=== PATIENT | male | born 1970 | race Caucasian/White ===

== ENCOUNTER 2017-11-19 08:54 | Emergency (ER) | payer BC, OTHER ==
[~2017-11-19] VITALS: Ht 182.9 cm; Wt 106.1 kg
[2017-11-19 09:19] VITALS: BP_SYST 109; BP_SYST 110; BP_SYST 122; BP_DIAS 75; BP_DIAS 76; BP_DIAS 79
[2017-11-19] MEDS ORDERED: LACTATED RINGERS 1,000 ML IV ONE (09:22)
[2017-11-19 09:32] LABS: BASOPHILS % (AUTO) 0 % (0-10); EOSINOPHILS % (AUTO) 1 % (0-10); HEMATOCRIT 45 % (40-54); LYMPHOCYTES # (AUTO) 1.8 X 10^3 (1.0-4.0); LYMPHOCYTES % (AUTO) 40 % (12-44); MEAN CORPUSCULAR HEMOGLOBIN 33 PG (25-34); MEAN CORPUSCULAR HGB CONC 36 G/DL (32-36); MEAN CORPUSCULAR VOLUME 92 FL (80-99); MEAN PLATELET VOLUME 9.6 FL (7.4-10.4); MONOCYTES # (AUTO) 0.4 X 10^3 (0.0-1.0); MONOCYTES % (AUTO) 8 % (0-12); NEUTROPHILS # (AUTO) 2.3 X 10^3 (1.8-7.8); NEUTROPHILS % (AUTO) 51 % (42-75); PLATELET COUNT 229 10^3/uL (130-400); RED BLOOD COUNT 4.86 10^6/uL (4.35-5.85); RED CELL DISTRIBUTION WIDTH 13.2 % (10.0-14.5); WHITE BLOOD COUNT 4.4 10^3/uL (4.3-11.0)
[2017-11-19] MEDS ORDERED: SULF-222 (09:33)
[2017-11-19] MEDS ORDERED: EMTR1TAB7 (09:33)
[2017-11-19] MEDS ORDERED: TRAZ100T92 (09:33)
[2017-11-19] MEDS ORDERED: ALPR0.5T7 (09:33)
[2017-11-19] MEDS ORDERED: FINA5TAB6 (09:33)
[2017-11-19] MEDS ORDERED: DEXT20TA8 (09:33)
[2017-11-19 09:44] LABS: ALANINE AMINOTRANSFERASE 20 U/L (0-55); ALBUMIN 5.1 GM/DL (3.2-4.5); ALKALINE PHOSPHATASE 55 U/L (40-136); BILIRUBIN,TOTAL 0.9 MG/DL (0.1-1.0); BUN/CREATININE RATIO 17; CALCIUM 10.1 MG/DL (8.5-10.1); CARBON DIOXIDE 28 MMOL/L (21-32); CHLORIDE 100 MMOL/L (98-107); GFR ESTIMATED 59; GLUCOSE 97 MG/DL (70-105); POTASSIUM 3.6 MMOL/L (3.6-5.0); SODIUM 139 MMOL/L (135-145); TOTAL PROTEIN 7.5 GM/DL (6.4-8.2)
--- NOTE | 2017-11-19 10:02 | ED Syncope ---
General Chief Complaint: Dizziness/Syncope Stated Complaint: SYNCOPAL EPISODES,WEAKNESS Nursing Triage Note: pt presents to ed with complaints of syncopal episode after getting out of bed this morning. pt went to work and nurse practitioner there refered him to ED. pt denies any injury besides bilateral knee tenderness. pt denies any recent illness. pt ambulates to ED room 6 without difficulty. Source of Information: Patient Exam Limitations: No Limitations History of Present Illness Date Seen by Provider: Nov 19, 2017 Time Seen by Provider: 09:15 Initial Comments Here with report of syncopal episode this morning. States that he got up out of bed and then bent over to pet his dogs when he felt dizzy and then realized he had passed out. He was only out for a few seconds and came back to. Complains of bilateral knee pain but is walking without difficulty. He actually got ready and went to work and saw the provider at work who sent him here for further evaluation. Denies ever having anything like this before. Did have some nausea but no vomiting with the incident. Denies recent illness or other concerns. Timing/Prior Episodes: No Prior History Symptoms Prior to Episode: Lightheadedness Precipitating Factors: Other (occurred just after waking up) Loss of Consciousness: Brief (Seconds) Current Symptoms: Back to Normal; No Chest Pain, No Diaphoresis, No Headache; Injury (bilateral knees); No Lightheadedness, No Nausea, No Pale, No Weakness Allergies and Home Medications Allergies Coded Allergies: Penicillins (Verified Allergy, Unknown, 11/19/17) Patient Home Medication List Home Medication List Reviewed: Yes Constitutional: see HPI; No chills, No fever EENTM: no symptoms reported Respiratory: no symptoms reported Cardiovascular: see HPI; No chest pain; syncope Gastrointestinal: see HPI Musculoskeletal: see HPI, joint pain; No joint swelling Skin: no symptoms reported All Other Systems Reviewed Negative Unless Noted: Yes Past Tkmzctg-Xxttiu-Rleoun Hx Patient Social History Alcohol Use: Occasionally Uses Recreational Drug Use: No Smoking Status: Never a Smoker Recent Foreign Travel: No Contact w/Someone Who Travel: No Recent Infectious Disease Expo: No Recent Hopitalizations: No Physical Abuse: No Sexual Abuse: No Mistreated: No Fear: No Seasonal Allergies Seasonal Allergies: No Past Medical History Surgeries: Yes Gallbladder, Tonsillectomy Respiratory: Yes Sleep Apnea Cardiac: Yes Hypertension Neurological: No Genitourinary: No Gastrointestinal: No Musculoskeletal: No Endocrine: Yes (hypoglycemia) HEENT: No Cancer: No Psychosocial: No Nursing Suicide Risk Score: 0 Integumentary: No Blood Disorders: No Family Medical History Reviewed Nursing Family Hx Heart Disease, Cancer Physical Exam Vital Signs Vital Signs - First Documented 11/19/17 11/19/17 09:19 09:21 Temp 97.6 Pulse 102 105 101 Resp 18 B/P (MAP) 122/79 (93) 110/76 (87) 109/75 (86) Pulse Ox 99 O2 Delivery Room Air Capillary Refill : Less Than 3 Seconds General Appearance: No Apparent Distress, WD/WN HEENT: PERRL/EOMI, Pharynx Normal Neck: Non Tender, Supple Cardiovascular: No Murmur, Tachycardia (90s) Respiratory: Lungs Clear, Normal Breath Sounds Gastrointestinal: Normal Bowel Sounds, Non Tender, Soft Back: Normal Inspection, No CVA Tenderness, No Vertebral Tenderness Extremities: Normal Range of Motion, Non Tender Neurologic/Psychiatric: Alert, Oriented x3 Cranial Nerves: Normal Speech, PERRL Coordination/Gait: Normal Gait Motor/Sensory: No Motor Deficit, No Sensory Deficit, No Pronator Drift Skin: Normal Color, Warm/Dry Progress/Results/Core Measures Lab Results Laboratory Tests Test 11/19/17 09:16 Range/Units White Blood Count 4.4 4.3-11.0 10^3/uL Red Blood Count 4.86 4.35-5.85 10^6/uL Hemoglobin 16.0 13.3-17.7 G/DL Hematocrit 45 40-54 % Mean Corpuscular Volume 92 80-99 FL Mean Corpuscular Hemoglobin 33 25-34 PG Mean Corpuscular Hemoglobin Concent 36 32-36 G/DL Red Cell Distribution Width 13.2 10.0-14.5 % Platelet Count 229 130-400 10^3/uL Mean Platelet Volume 9.6 7.4-10.4 FL Neutrophils (%) (Auto) 51 42-75 % Lymphocytes (%) (Auto) 40 12-44 % Monocytes (%) (Auto) 8 0-12 % Eosinophils (%) (Auto) 1 0-10 % Basophils (%) (Auto) 0 0-10 % Neutrophils # (Auto) 2.3 1.8-7.8 X 10^3 Lymphocytes # (Auto) 1.8 1.0-4.0 X 10^3 Monocytes # (Auto) 0.4 0.0-1.0 X 10^3 Eosinophils # (Auto) 0.0 0.0-0.3 10^3/uL Basophils # (Auto) 0.0 0.0-0.1 10^3/uL D-Dimer 0.52 H 0.00-0.49 UG/ML Sodium Level 139 135-145 MMOL/L Potassium Level 3.6 3.6-5.0 MMOL/L Chloride Level 100 98-107 MMOL/L Carbon Dioxide Level 28 21-32 MMOL/L Anion Gap 11 5-14 MMOL/L Blood Urea Nitrogen 22 H 7-18 MG/DL Creatinine 1.30 0.60-1.30 MG/DL Estimat Glomerular Filtration Rate 59 BUN/Creatinine Ratio 17 Glucose Level 97 70-105 MG/DL Calcium Level 10.1 8.5-10.1 MG/DL Total Bilirubin 0.9 0.1-1.0 MG/DL Aspartate Amino Transf (AST/SGOT) 18 5-34 U/L Alanine Aminotransferase (ALT/SGPT) 20 0-55 U/L Alkaline Phosphatase 55 40-136 U/L Troponin I < 0.30 <0.30 NG/ML Total Protein 7.5 6.4-8.2 GM/DL Albumin 5.1 H 3.2-4.5 GM/DL My Orders Orders - VARUN ARAMBULA MD Cbc With Automated Diff (11/19/17 09:22) Comprehensive Metabolic Panel (11/19/17 09:22) Fibrin Degradation Products (11/19/17 09:22) Troponin I (11/19/17 09:22) Saline Lock/Iv-Start (11/19/17 09:22) Lactated Ringers (Lr 1000 Ml Iv Solution (11/19/17 09:22) Medications Given in ED Current Medications Medications Dose Ordered Sig/Shnaiqua Route Start Time Stop Time Status Last Admin Dose Admin Lactated Ringer's 1,000 ml @ 0 mls/hr Q0M ONCE IV 11/19/17 09:22 11/19/17 09:24 DC 11/19/17 09:37 0 MLS/HR Vital Signs/I&O 11/19/17 11/19/17 09:19 09:21 Temp 97.6 Pulse 102 104 105 101 Resp 18 B/P (MAP) 122/79 (93) 111/78 (89) 110/76 (87) 109/75 (86) Pulse Ox 99 O2 Delivery Room Air Blood Pressure Mean: 89 Progress Note : Progress Note Seen and evaluated. IV, labs and EKG ordered. Due to tachycardia, normal saline 1 L bolus ordered. Monitor patient. Orthostatic vital signs done and show a little increase in heart rate in the little decrease in blood pressure which adds to the evidence for normal saline infusion. 1030: Labs and EKG evaluated. Heart rate decreased to the low 80s after fluid administration. States feels a little bit better. Only finding was slightly elevated d-dimer may be related to knee contusions. O2 saturations 99 percent on room air and he has no chest pain. I do not believe this is related to pulmonary embolism. This was discussed with the patient and he agrees. Overall we both agree that this is likely syncopal episode related to standing to fast after lying down. Discharged home with return precautions. Patient verbalize understanding of instructions and agreement with plan. Initial ECG Impression Date: Nov 19, 2017 Initial ECG Impression Time: 09:08 Initial ECG Rate: 88 Initial ECG Rhythm: Normal Sinus Comment Sinus rhythm with incomplete right bundle branch block. Leftward axis. No evidence of ST elevation NV. No previous available for comparison. Interpreted by me. Departure Impression Primary Impression: Syncope Qualified Codes: R55 - Syncope and collapse Disposition: 01 HOME, SELF-CARE Condition: Improved Departure-Patient Inst. Decision time for Depature: 10:34 Referrals: SIXTO DUQUE DO (PCP/Family) Primary Care Physician Patient Instructions: Syncope (Fainting) (DC) Add. Discharge Instructions: All discharge instructions reviewed with patient and/or family. Voiced understanding. Drink plenty of fluids. Get some rest. Follow-up with your DrSneha in one to 2 days for recheck and further evaluation. Return for worse pain, fever, vomiting , weakness, breathing problems or other concerns as needed. VARUN ARAMBULA MD Nov 19, 2017 10:02
[2017-11-19 10:49] VITALS: BP 113/80
== END 2017-11-19 10:49 | disposition home or self-care (01) ==
LOC: EDUNIT# 08:54 → ER 08:57
DX: R55 Syncope and collapse (principal); I10 Essential (primary) hypertension; Z90.89 Acquired absence of other organs; Z88.0 Allergy status to penicillin
CPT/HCPCS: 36415; 80053; 84484; 85025; 85379